=== PATIENT | female | born 1985 | race Caucasian/White ===

== ENCOUNTER 2016-09-28 21:41 | Emergency (ER) | payer MEDICAID ==
[~2016-09-28] VITALS: Ht 170.2 cm; Wt 147.7 kg
[~2016-09-28 21:41] MED LIST: FLEXERIL10 MG PO; NO HOME MEDICATIONS; NORCO 325 MG-7.1 TAB PO; PERCOCET 325 MG1 TA2 PO; PROVERA 10MG10 MG PO; SEPTRA DS 8001 TAB PO; VENTOLIN0.09 MG IH
[2016-09-28 21:46] VITALS: BP 152/75; TEMP 98
[2016-09-28] MEDS ORDERED: TOPAMAX50 MG PO (21:50)
[2016-09-28] MEDS ORDERED: DESYREL DIVIDO150 M1 PO (21:50)
[2016-09-28] MEDS ORDERED: PROAIR HFA0.09 MG/AC IH (21:51)
[2016-09-28] MEDS ORDERED: TUMS500 MG (21:51)
[2016-09-28] MEDS ORDERED: MIBELAS 24 FE1 EACH PO (21:51)
[2016-09-28 22:29] LABS: BASO # 0.1 (0.0-0.2); BASO % 0.6 % (0.0-2.0); EOS # 0.2 (0.0-0.7); EOS % 2.2 % (0-4.0); GRAN # 5.8 (1.4-6.5); HEMATOCRIT 42.1 % (37.0-47.0); HEMOGLOBIN 13.9 g/dl (12.5-16.0); LYMPH % 23.5 % (20.0-51.0); MEAN CELL VOLUME 89 fl (80.0-100.0); MEAN CORPUSCULAR HEMOGLOBIN 29 pg (27.0-31.0); MEAN CORPUSCULAR HGB CONC 33 g/dl (33.0-37.0); MEAN PLATELET VOLUME 10.2 fl (7.4-10.4); MONO # 0.5 (0.1-0.6); MONO % 5.5 % (1.7-9.3); PLATELET COUNT 294 K/mm3 (130-400); RED BLOOD COUNT 4.75 M/mm3 (4.10-5.30); REDCELL DISTRIBUTION WIDTH-CV 12.4 % (11.5-14.5); WHITE BLOOD COUNT 8.6 K/mm3 (4.8-10.8)
[2016-09-28 22:35] LABS: PH 6 (5-8); URINE APPEARANCE Hazy; URINE BACTERIA None Seen /hpf; URINE BILIRUBIN Negative (NEGATIVE); URINE BLOOD 3+ (NEGATIVE); URINE COLOR Yellow; URINE GLUCOSE Negative (NEGATIVE); URINE KETONE Negative (NEGATIVE); URINE RBC 20-50 /hpf
[2016-09-28 22:42] LABS: AMPHETAMINE URINE NEGATIVE; BARBITURATES URINE NEGATIVE; BENZODIAZEPINES URINE NEGATIVE; BUPRENORPHINE URINE NEGATIVE; METHADONE URINE NEGATIVE; OPIATES URINE NEGATIVE; OXYCODONE URINE NEGATIVE; PHENCYCLIDINE URINE NEGATIVE; PROPOXYPHENE URINE NEGATIVE; THC CANNABINOIDS URINE NEGATIVE
[2016-09-28 22:42] LABS: ADJUSTED CALCIUM 9.1 mg/dL (8.4-10.2); ALANINE AMINOTRANSFERASE 27 U/L (9-52); ALBUMIN 3.9 gm/dL (3.5-5.0); ALKALINE PHOSPHATASE 76 U/L (50-136); ANION GAP 10 mmol/L (7-16); BILIRUBIN,TOTAL 0.5 mg/dL (0.0-1.0); BLOOD UREA NITROGEN 11 mg/dL (7-17); C-REACTIVE PROTEIN 1.6 mg/dL (0.0-0.9); CARBON DIOXIDE 25 mmol/L (22-30); CHLORIDE 108 mmol/L (98-107); CREATININE, serum 0.85 mg/dL (0.52-1.25); GLUCOSE 101 mg/dL (74-106); POTASSIUM 3.7 mmol/L (3.4-5.0); SODIUM 143 mmol/L (137-145); TOTAL PROTEIN 7.2 gm/dL (6.4-8.2)
[2016-09-28] MEDS ORDERED: K-DUR 10 MEQ T10 MEQ PO (22:56)
[2016-09-28] MEDS ORDERED: LASIX 20MG TABL20 MG PO (22:56)
[2016-09-28 23:02] VITALS: PULSE 83
== END 2016-09-28 23:03 | disposition home or self-care (01) ==
LOC: COL.ER 21:41
PROVIDERS: Emergency Medicine
DX: R60.0 Localized edema (principal); R47.9 Unspecified speech disturbances; J45.909 Unspecified asthma, uncomplicated; F17.210 Nicotine dependence, cigarettes, uncomplicated

== ENCOUNTER 2020-05-23 06:36 | Emergency (ER) | payer MEDICAID ==
[~2020-05-23] VITALS: Ht 170.2 cm; Wt 180.9 kg
[~2020-05-23 06:36] MED LIST changes: +DESYREL DIVIDO150 M1 PO; +K-DUR 10 MEQ T10 MEQ PO; +LASIX 20MG TABL20 MG PO; +MIBELAS 24 FE1 EACH PO; +PROAIR HFA0.09 MG/AC IH; +TOPAMAX50 MG PO; +TUMS500 MG
[2020-05-23 06:44] VITALS: BP 146/98; PULSE 89; TEMP 98.3
== END 2020-05-23 07:38 | disposition home or self-care (01) ==
LOC: COL.ER 06:36
DX: S90.31XA Contusion of right foot, initial encounter (principal); Z88.1 Allergy status to other antibiotic agents; Z88.6 Allergy status to analgesic agent; X58.XXXA Exposure to other specified factors, initial encounter

== ENCOUNTER 2020-07-07 21:57 | Emergency (ER) | payer MEDICAID ==
[~2020-07-07] VITALS: Ht 170.2 cm; Wt 187.3 kg
[2020-07-07 22:10] VITALS: BP 154/90; TEMP 97.7
[2020-07-07] MEDS ORDERED: FLEXERIL 1010 MG/TAB PO (22:56)
[2020-07-07 23:03] VITALS: PULSE 94
== END 2020-07-07 23:04 | disposition home or self-care (01) ==
LOC: COL.ER 21:57
DX: S76.912A Strain of unspecified muscles, fascia and tendons at thigh level, left thigh, initial encounter (principal); Z20.822 Contact with and (suspected) exposure to COVID-19; Z88.6 Allergy status to analgesic agent; Z88.1 Allergy status to other antibiotic agents; Z79.51 Long term (current) use of inhaled steroids; W19.XXXA Unspecified fall, initial encounter